=== PATIENT | female | born 1985 | race African-American/Black ===

== ENCOUNTER 2019-06-22 04:26 | Emergency (ER) | payer MEDICARE, OTHER ==
[2019-06-22] MEDS ORDERED: Ondansetron ODT 4 MG TAB ONE (04:55)
[2019-06-22 04:56] LABS: Pregnancy Test - Urine (BHCG) Negative (Negative); Pregu Control Background? CLEAR/WHITE (CLR/WHITE); Pregu Control Bar Appear? YES (CONTROL BAR); Specific Gravity 1.025 (1.002-1.036)
[2019-06-22 04:57] LABS: Bilirubin Negative (Negative); Blood, Urine Negative (Negative); Clarity Clear (Clear); Glucose, Urine (Dipstick) Negative (Negative); Leukocyte Negative (Negative); Nitrite Negative (Negative); Protein, Urine (Dipstick) 30 mg/dL (Neg-Trace); Urobilinogen 0.2 mg/dL (Less than 2)
[2019-06-22 05:14] LABS: Bacteria/HPF None Seen HPF (None Seen); RBC/HPF 0-3 HPF (0-3); Squamous Epithelial 0-3 HPF (0-3); WBC/HPF 0-3 HPF (0-3)
== END 2019-06-22 05:15 | disposition home or self-care (01) ==
LOC: BURERS 04:26
DX: R10.9 Unspecified abdominal pain (principal); R11.2 Nausea with vomiting, unspecified
CPT/HCPCS: 81003; 81015; 81025; 96372; 99284; J0500; Q0162

== ENCOUNTER 2019-09-26 16:28 | Emergency (ER) | payer MEDICARE, OTHER | END 2019-09-26 16:59 | disposition home or self-care (01) | LOC: BURERS 16:28 | DX: H66.42 Suppurative otitis media, unspecified, left ear (principal); H72.92 Unspecified perforation of tympanic membrane, left ear; F41.9 Anxiety disorder, unspecified; F31.9 Bipolar disorder, unspecified; Z79.899 Other long term (current) drug therapy ==

== ENCOUNTER 2019-10-20 09:10 | Emergency (ER) | payer MEDICARE, MEDICAID ==
[2019-10-20] MEDS ORDERED: Ondansetron ODT 4 MG TAB ONE (09:37)
[2019-10-20] MEDS ORDERED: Hyoscyamine Sulfate SL 0.125 mg Tablet ONE (09:37)
== END 2019-10-20 09:51 | disposition home or self-care (01) ==
LOC: BURERS 09:10
DX: R11.2 Nausea with vomiting, unspecified (principal); F41.9 Anxiety disorder, unspecified; F31.9 Bipolar disorder, unspecified; Z79.899 Other long term (current) drug therapy
CPT/HCPCS: 99283; Q0162

== ENCOUNTER 2020-05-13 04:59 | Emergency (ER) | payer MEDICARE, MEDICAID ==
[2020-05-13 05:48] LABS: #Basophils 0.1 thou/uL (0.0-0.2); #Lymphocytes 2.4 thou/uL (1.20-3.40); #Monocytes 0.7 thou/uL (0.11-0.59); %Basophils 0.7 % (0.0-1.0); %Eosinophils 0.2 % (0.0-10.0); %Monocytes 6.4 % (0.0-10.0); %Neutrophils 71.7 % (42.0-75.0); Hemoglobin 11.2 g/dL (12.0-16.0); Mean Corpuscular HGB CONC 32.2 g/dL (32.0-36.0); Mean Corpuscular Hemoglobin 29.9 pg (27.0-31.0); Mean Corpuscular Volume 92.7 fL (78.0-98.0); Mean Platelet Volume 6.4 fL (7.4-10.4); Platelet Count 330 thou/uL (130-400); RBC Distribution Width 11.9 % (11.5-14.5); Red Blood Cell (RBC) Count 3.77 mill/uL (4.20-5.40); White Blood Cell (WBC) Count 11.2 thou/uL (4.8-10.8)
[2020-05-13] MEDS ORDERED: Ondansetron PF 4 MG/2 ML Vial ONE (05:50)
[2020-05-13] MEDS ORDERED: Pantoprazole 40 MG VIAL ONE (05:50)
[2020-05-13 05:51] LABS: MDiff Complete? YES; Manual Diff?? NO
[2020-05-13 06:00] LABS: ALT (SGPT) 8 U/L (8-55); AST (SGOT) 14 U/L (5-34); Albumin 3.6 g/dL (3.5-5.0); Alkaline Phosphatase 67 U/L (40-110); Anion Gap 15 mmol/L (10-20); BUN (Urea Nitrogen) 4 mg/dL (7.0-18.7); Bilirubin, Total 0.3 mg/dL (0.2-1.2); Calc. Creatinine Clearance 0 mL/min (70-130); Calcium 9.5 mg/dL (7.8-10.44); Carbon Dioxide 24 mmol/L (22-29); Chloride 103 mmol/L (98-107); Estimated GFR-MDRD Greater than 90; Glucose 104 mg/dL (70-105); Potassium 3.1 mmol/L (3.5-5.1); Protein, Total 6.6 g/dL (6.0-8.3); Sodium 139 mmol/L (136-145)
[2020-05-13 06:03] LABS: Bilirubin Negative (Negative); Blood, Urine Negative (Negative); Clarity Clear (Clear); Glucose, Urine (Dipstick) Negative (Negative); Ketone, Urine > or equal to 80 mg/dL (Negative); Leukocyte Negative (Negative); Nitrite Negative (Negative); Protein, Urine (Dipstick) 30 mg/dL (Neg-Trace); Urobilinogen 0.2 mg/dL (Less than 2); pH, Urine 8.5 (5.0-9.0)
[2020-05-13 06:14] LABS: RBC/HPF 0-3 HPF (0-3); Squamous Epithelial 0-3 HPF (0-3); WBC/HPF 0-3 HPF (0-3)
== END 2020-05-13 06:30 | disposition short-term general hospital (02) ==
LOC: BURERS 04:59
DX: O47.02 False labor before 37 completed weeks of gestation, second trimester (principal); O99.342 Other mental disorders complicating pregnancy, second trimester; F31.9 Bipolar disorder, unspecified; F41.9 Anxiety disorder, unspecified; O99.332 Smoking (tobacco) complicating pregnancy, second trimester; F17.290 Nicotine dependence, other tobacco product, uncomplicated; O99.89 Other specified diseases and conditions complicating pregnancy, childbirth and the puerperium; M79.7 Fibromyalgia; O99.012 Anemia complicating pregnancy, second trimester; D57.3 Sickle-cell trait; O21.2 Late vomiting of pregnancy; Z79.899 Other long term (current) drug therapy; Z3A.26 26 weeks gestation of pregnancy
CPT/HCPCS: 80053; 81003; 81015; 85025; 96365; 96375; C9113; J2405

== ENCOUNTER 2021-02-17 11:27 | Emergency (ER) | payer MEDICARE, MEDICAID ==
[2021-02-17] MEDS ORDERED: Ibuprofen 800 MG TAB ONE (12:24)
== END 2021-02-17 12:33 | disposition home or self-care (01) ==
LOC: BURERS 11:27
DX: S63.502A Unspecified sprain of left wrist, initial encounter (principal); S53.402A Unspecified sprain of left elbow, initial encounter; K21.9 Gastro-esophageal reflux disease without esophagitis; F17.290 Nicotine dependence, other tobacco product, uncomplicated; Z79.899 Other long term (current) drug therapy; W18.30XA Fall on same level, unspecified, initial encounter

== ENCOUNTER 2021-04-30 16:54 | Emergency (ER) | payer MEDICARE, MEDICAID ==
[2021-04-30] MEDS ORDERED: hydrOXYzine 25 MG TAB ONE (17:05)
[2021-04-30] MEDS ORDERED: Dexamethasone 10 MG/ML VIAL ONE (17:08)
== END 2021-04-30 17:19 | disposition home or self-care (01) ==
LOC: BURERS 16:54
DX: L25.9 Unspecified contact dermatitis, unspecified cause (principal); K21.9 Gastro-esophageal reflux disease without esophagitis; F17.290 Nicotine dependence, other tobacco product, uncomplicated; F31.9 Bipolar disorder, unspecified; F41.9 Anxiety disorder, unspecified; Z79.899 Other long term (current) drug therapy
CPT/HCPCS: 99282; J1100